=== PATIENT | female | born 1950 | race Caucasian/White ===

== ENCOUNTER 2016-07-06 00:52 | Inpatient (IN) | payer OTHER, MEDICARE ==
[~2016-07-06] VITALS: Ht 165.1 cm; Wt 79.4 kg
[~2016-07-06 00:52] MED LIST: LISINOPRIL20 M1 PO; METFORMIN HCL500 M3 PO; PRAVASTATIN SOD20 M2 PO; SERTRALINE HCL50 MG PO
--- NOTE | 2016-07-06 12:14 | Operative Report ---
Operative/Inv Procedure Report Surgery Date: 07/06/16 Name of Procedure: Right mastectomy and sentinel lymph node biopsy and left mastectomy Pre-Operative Diagnosis: Newly diagnosed right breast cancer, stage I History of left breast cancer Post-Operative Diagnosis: Same Estimated Blood Loss: less than 50ml Surgeon/Cloth Examiner Hand: RIAN WALKER MD Anesthesia: laryngeal mask airway Specimens: Left breast, right breast, medial breast tissue, right sentinel lymph node Operative/Procedure Note Note: Patient is history of left breast cancer in 2014. She presented with her newly diagnosed right-sided breast cancer. She decided on bilateral mastectomies for treatment. She brought to the operating room on 07/06/2016 and placed under anesthesia. 2 g of Ancef was given. Preoperative lymphoscintigraphy was performed and those films were reviewed. Bilateral breast were prepped and draped in a sterile fashion using ChloraPrep. 3 mL of methylene blue diluted with 2 mL of saline was injected in the retroareolar fashion. The left breast was approached first. The nipple areolar complex was excised Essman. Curvilinear incisions were made above and below the nipple areolar complex. Skin flaps are created superiorly to the level of clavicle, medially to the sternum, inferiorly to the superior border the rectus sheath and laterally to the latissimus. The breast tissue was then removed from the pectoralis fashion using electrocautery. Specimen was marked for orientation with a suture in the medial aspect. Hemostasis was adequate. The right breast was then approached. Similar incisions were made above and below the nipple areolar complex. Skin flaps are created in a similar fashion. Additional medial tissue was taken because the flap was thick in the medial aspect. The axilla was then approached. There was a single hot, blue lymph node identified. There were no other hot, blue, or palpable lymph nodes in the axilla. This was adequate remainder the procedures performed by Dr. Tang.
--- NOTE | 2016-07-06 13:18 | Operative Report ---
Operative/Inv Procedure Report Surgery Date: 07/06/16 Name of Procedure: Lateral breast reconstruction with tissue expanders and Flex HD the Pre-Operative Diagnosis: Absent bilateral breasts Post-Operative Diagnosis: Same Estimated Blood Loss: 50ml to 100ml Surgeon/Hi Lift Operator: debbie Anesthesia: general endotracheal tube Operative/Procedure Note Note: Patient was counseled in regards the procedure the alternatives risks and expected outcomes as relates to bilateral breast reconstruction with the tissue business lawyer Flex HD technique. We discussed all treatment options possible including on the patient has chosen this wound. We talked about risks with her history of radiation and size. She agreed to proceed knowing the reduced chances of an acceptable cosmetic outcome. She underwent left-sided mastectomy by Dr. Cerrato. A 0.2 separate table of insurance and assistance with fresh gloves and gowns was used. A antibiotic solution with bacitracin was used liberally throughout the case as well as in the tissue business lawyer The skin was reprepped with Betadine. The pectoralis muscle was removed inferiorly and inferior medially. 35 mL business lawyer was placed in the pocket and covered with an inferior sling of Flex HD with 2-0 Vicryl's. Was placed both above and below with 3 layer closure was carried out. Similar procedure done on the other side after further excision of some questionable quality tissue laterally.
[2016-07-06 14:57] VITALS: BP 126/76
--- NOTE | 2016-07-06 15:00 | NUR ---
ARRIVED TO FLOOR VIA STRETCHER FROM PACU. A & O X 3. RA. VSS. C/O MILD TIGHTNESS TO CHEST BUT DENIES SIGNIFICANT PAIN, STATES IT IS TOLERABLE. SURGICAL BRA IN PLACE. DRY DSG CLEAN AND INTACT UNDER BRA. ZARINA DRAIN X 4. ORIENTED TO CALL SYSTEM. IVF INFUSING. WILL MONITOR.
--- NOTE | 2016-07-06 15:21 | Admission Core Measures ---
Admission Meds I reviewed the following Meds: Current Medications Sig/Vanna Start time Last Medication Dose Stop Time Status Admin Acetaminophen 650 MG Q6P PRN 07/06 1500 UNVr (Tylenol) Cefazolin Sodium 2 GM IQ8 07/06 1600 UNVr (Kefzol) N/A 1 UNIT (No Carrier) Heparin Sodium 5,000 UNIT Q8 07/06 2200 UNVr (Porcine) Ibuprofen 600 MG 4 TIMES/DAY PRN 07/06 1000 UNVr (Motrin) Insulin Human Regular 0 TIDAC/HS 07/06 1200 CAN (NovoLIN R) Insulin Human Regular 0 TIDAC/HS 07/06 1200 UNVr (NovoLIN R) Ondansetron HCl 4 MG Q6P PRN 07/06 1500 UNVr (Zofran) Oxycodone/ 1 TAB Q4P PRN 07/06 1500 UNVr Acetaminophen (Percocet) Oxycodone/ 2 TAB Q4P PRN 07/06 1500 UNVr Acetaminophen (Percocet) Promethazine HCl 12.5 MG Q6P PRN 07/06 1500 UNVr (Phenergen) 07/13 0959 Sodium Chloride 1,000 ML Q13H 07/06 1500 UNVr 07/06 (Normal Saline 0.9%) 1511 Acute Coronary Syndrome Inclusion Criteria ACS Diagnosis No Inpatient Core Measures LDL Reminder: If No, please order W/I first 24hr of stay Congestive Heart Failure Inclusion Criteria CHF Diagnosis No Cerebrovascular accident Inclusion Criteria CVA/TIA Diagnosis No Inpatient Core Measures Bedside Swallow Eval Reminder: If BSE failed, place ST order Antithrombotic Reminder: Order Antithrombotic Medication by end of day 2 Antithrombotic Reminder: Document Reason Antithrombotic Not ordered by end of day 2 AFIB/Flutter Reminder: If Present, add to problem list AFIB/Flutter Reminder: Order Anticoag Medication for pts with AFIB/Flutter Atherosclerosis Reminder: If Present, add to problem list LDL Reminder: If No, please order W/I first 24hr of stay PT Order Reminder: If No, please order Venous thromboembolism Inpatient Core Measures VTE Risk Factors: Age > 40, Cancer/chemo/oth therapy, Surgery No Mech VTE prophylaxis d/t No contraindications No VTE Pharm Prophylaxis d/t No contraindications Inclusion Criteria - Per Current guidelines, there needs to be overlap - treatment for the first 5 days of Warfarin therapy. - Parenteral Anticoagulation (IV or SC) needs to be - given along with Warfarin therapy. VTE Diagnosis No VTE Type NONE VTE Confirmed by (Test) NONE Problem List As ranked by this Provider includes Assessment & Plan 1. Status post bilateral mastectomy HOME MEDS Home Med List Lisinopril 20 MG TABLET 1 TAB PO DAILY htn (Reported) Metformin HCl 500 MG TABLET 1 TAB PO BID dm ii (Reported) Pravastatin Sodium 20 MG TABLET 1 TAB PO DAILY cholesterol (Reported) Sertraline HCl 50 MG TABLET 1 TAB PO DAILY depression (Reported)
[2016-07-06] MEDS ORDERED: VALIUM2 M1 PO (15:24)
[2016-07-06] MEDS ORDERED: PERCOCET 5-3251 EACH PO (15:24)
--- NOTE | 2016-07-06 15:28 | Patient Discharge Instructions ---
Discharge Instructions General Discharge Information You were seen/treated for: Right breast cancer You had these procedures: Bilateral mastectomy with right sentinel lymph node biopsy and bilateral reconstruction with tissue expanders Watch for these problems: Initially increased pain, swelling, redness or drainage from incision. Temperature over 101 Change in color or significantly increased volume of drainage from drains No bath, but you may shower: Yes Other wound care: In 24 hours remove all dressings leaving white strips on until seen by her surgeon Replace dressings around drain daily with a dry dressing Special Instructions: Empty drains daily and as needed. Record output daily Diet Continue normal diet: Yes Activity Activity Self Limited: Yes Pounds, do NOT lift more than: 5 Other activity limits: No lifting more than 5 pounds No strenuous exercise and do not raise arms above chest level No driving until seen by your surgeon and off all pain medications Acute Coronary Syndrome Inclusion Criteria At DC or during hospital stay patient has or had the following: ACS DIAGNOSIS No Discharge Core Measures Meds if any: Prescribed or Continued at Discharge Meds if any: NOT Prescribed or Continued at Discharge Congestive Heart Failure Inclusion Criteria At DC or during hospital stay patient has or had the following: CHF DIAGNOSIS No Discharge Core Measures Meds if any: Prescribed or Continued at Discharge Meds if any: NOT Prescribed or Continued at Discharge Cerebrovascular accident Inclusion Criteria At DC or during hospital stay patient has or had the following: CVA/TIA Diagnosis No Discharge Core Measures Meds if any: Prescribed or Continued at Discharge Meds if any: NOT Prescribed or Continued at Discharge Venous thromboembolism Inclusion Criteria VTE Diagnosis No VTE Type NONE VTE Confirmed by (Test) NONE Discharge Core Measures - Per Current guidelines, there needs to be overlap - treatment for the first 5 days of Warfarin therapy. - If discharged on Warfarin prior to 5 days of - overlap therapy, the patient will need to be - assessed for post discharge needs including - *Post discharge parental anticoagulation - *Warfarin and/or parental anticoagulation education - *Follow up date to check INR post discharge At least 5 days overlap therapy as Inpatient No Meds if any: Prescribed or Continued at Discharge Note: Overlap Therapy is Warfarin and Anticoagulant Meds if any: NOT Prescribed or Continued at Discharge
--- NOTE | 2016-07-06 15:55 | PN- General Surgery ---
Subjective Subjective: Postop check: Patient is comfortable, mild nausea, tolerating clears, no significant pain, has not voided yet, no chest pain or shortness of breath, no fever or flulike illness. Objective Vital Signs and I&Os Vital Signs Date Time Temp Pulse Resp B/P B/P Pulse O2 O2 Flow FiO2 Mean Ox Delivery Rate 07/06 1457 97.3 65 16 126/76 93 Room Air Intake & Output 07/06 1600 07/06 0800 07/06 0000 07/05 1600 07/05 0800 07/05 0000 Intake Total Output Total Balance Patient 175 lb Weight Physical Exam: Well-developed well-nourished no apparent distress. HEENT: Atraumatic, extraocular motion intact Neck: Supple, no lymphadenopathy Respiratory: No respiratory distress Chest: Dressing is in place, clean dry and intact, [address], 2 on the left and 2 on the right with serous sanguinous discharge Extremities: No edema, no calf pain Neuro: Alert and oriented x3 Psych: Mood affect normal, normal memory normal judgment. Skin: Warm and dry, no rash on exposed skin Assessment/Plan Assessment/Plan Postop day 0 status post bilateral breast mastectomy with reconstruction and tissue deportation examiner and right-sided sentinel node biopsy secondary to breast cancer. Regular diet ZARINA drains to self suction-to be removed in 1 week as outpatient Continue bra and dressings Antibiotics for 5 days total, currently on Ancef IV every 8 hours, switch to Keflex upon DC DVT prophylaxis has history of PE and DVT, start heparin subcutaneous tonight every [address] in [address], discussed with patient, encourage ambulation Fingersticks and sliding scale coverage Continue regular medication Pain medication as needed Out of bed ad una. DC IV fluids been tolerating by mouth well Awaiting void after Hay catheter was removed postoperatively Labs tomorrow morning Anticipate discharge in 1-2 days Core Measures/Miscellaneous Venous Thromboembolism VTE Risk Factors: Age > 40, Previous VTE, Surgery VTE Contraindications: No Contraindications VTE Diagnosis: No VTE Type: NONE VTE Confirmed by (Test): NONE Beta Jeanmarie Is Beta Jeanmarie a Home Med? No Antibiotics Is Patient on Antibiotics? Yes If Yes: prophylaxis
[2016-07-06 16:56] VITALS: BP 110/60
[2016-07-06 19:26] VITALS: BP 140/80
[2016-07-06 22:16] VITALS: BP 122/66
--- NOTE | 2016-07-06 22:56 | NUR ---
ZARINA #4 NO OUTPUT, NOTIFIED KEVAN RONQUILLO.
[2016-07-06 23:59] VITALS: BP 132/74
[2016-07-07 03:58] VITALS: BP 124/70
--- NOTE | 2016-07-07 07:41 | PN- General Surgery ---
Subjective Subjective: No complaints. pain improves with vicodin. No more nausea. Out of bed to bathroom. No dizziness. No shortness of breath. Voiding well. She feels capable of doing her own drain care at home. Objective Vital Signs and I&Os Vital Signs Date Time Temp Pulse Resp B/P B/P Pulse O2 O2 Flow FiO2 Mean Ox Delivery Rate 07/07 0358 98.0 75 18 124/70 96 Room Air 07/07 0000 93 Nasal 2.0L Cannula 07/06 2358 99.5 73 20 132/74 95 Room Air 07/06 2216 99.0 68 20 122/66 93 07/06 1926 68 140/80 07/06 1656 98.1 71 20 110/60 92 07/06 1457 97.3 65 16 126/76 93 Room Air Intake & Output 07/07 0800 07/07 0000 07/06 1600 07/06 0807/06 0000 07/05 1600 Intake Total 720 1040 Output Total 461 920 Balance 259 120 Intake, IV 600 600 Intake, Oral 120 440 Output, 61 120 Drainage Output, Urine 400 800 Patient 175 lb 175 lb Weight Weight Reported by Patient Measurement Method Physical Exam: General - alert & oriented x 3. comfortable. no acute distress. Lungs - clear bilaterally. no w/r/r. Cardiac - s1s2. reg. Chest - wearing surgical bra. dressings c/d/i. ZARINA drains with bloody drainage. Abdomen - soft. nontender. Extremities - warm bilaterally. no c/c/e. calves soft and nontender b/l. athrombics active. Current Medications: Current Medications Sig/Vanna Start time Last Medication Dose Route Stop Time Status Admin Acetaminophen 650 MG Q6P PRN 07/06 1500 AC PO Acetaminophen 1,000 MG .STK-MED ONE 07/06 899 DC IV 07/06 09 Acetaminophen/ 1 TAB Q4P PRN 07/06 193 AC Hydrocodone Bitart PO Acetaminophen/ 2 TAB Q4P PRN 07/06 193 AC 07/07 Hydrocodone Bitart PO 0353 Cefazolin Sodium 2 GM IQ8 07/06 1600 AC 07/06 N/A 1 UNIT IV 2311 Cefazolin Sodium 2,000 MG ONCE 07/06 0000 DC IV 07/06 235 Fentanyl Citrate 250 MCG .STK-MED ONE 07/06 09 DC IM 07/06 0901 Heparin Sodium 5,000 UNIT Q8 07/06 2200 AC 07/07 (Porcine) SC 0554 Hydromorphone HCl 2 MG .STK-MED ONE 07/06 1319 DC IM 07/06 1320 Hydromorphone HCl 2 MG .STK-MED ONE 07/06 0900 DC IM 07/06 0901 Ibuprofen 600 MG 4 TIMES/DAY PRN 07/06 1000 AC PO Insulin Human Regular 0 TIDAC/HS 07/06 1200 CAN SC Insulin Human Regular 0 TIDAC/HS 07/06 1200 AC 07/06 SC 2133 Lisinopril 20 MG DAILY 07/06 1000 DC PO Metformin HCl 500 MG BID 07/06 1000 DC PO Midazolam HCl 5 MG .STK-MED ONE 07/06 0900 DC IM 07/06 0901 Ondansetron HCl 4 MG Q6P PRN 07/06 1500 AC 07/06 IV 1930 Oxycodone/ 1 TAB Q4P PRN 07/06 1500 DC Acetaminophen PO Oxycodone/ 2 TAB Q4P PRN 07/06 1500 DC Acetaminophen PO Pravastatin Sodium 20 MG DAILY 07/06 1000 DC PO Promethazine HCl 12.5 MG Q6P PRN 07/06 1500 AC IV 07/13 0959 Sertraline HCl 50 MG DAILY 07/06 1000 DC PO Sodium Chloride 1,000 ML Q13H 07/06 1500 AC 07/07 IV 0304 Results Last 48 Hours of Labs: Laboratory Tests 07/07 06 Chemistry Sodium Pending Potassium Pending Chloride Pending Carbon Dioxide Pending Anion Gap Pending BUN Pending Creatinine Pending BUN/Creatinine Ratio Pending Hematology CBC w Diff Pending WBC Pending RBC Pending Hgb Pending Hct Pending MCV Pending MCH Pending RDW Pending Plt Count Pending MPV Pending PUBS MCHC Pending Assessment/Plan Assessment/Plan This 66 year old female is POD#1 s/p bilateral breast mastectomy with reconstruction and tissue rn transfer and right-sided sentinel node biopsy secondary to breast cancer tolerating diet. d/c iv fluids. continue vicodin / valium / motrin prn pain control ZARINA drain teaching f/u labs hep sc - dvt ppx oob/ambulation continue IV ancef q8. to go home with keflex to complete 5 days d/c planning. she doesn't feel like she will need any services. will d/w Core Measures/Miscellaneous Venous Thromboembolism VTE Risk Factors: Age > 40, Previous VTE, Surgery VTE Contraindications: No Contraindications VTE Diagnosis: No VTE Type: NONE VTE Confirmed by (Test): NONE Beta Jeanmarie Is Beta Jeanmarie a Home Med? No Antibiotics Is Patient on Antibiotics? Yes If Yes: prophylaxis
[2016-07-07] MEDS ORDERED: KEFLEX500 M1 PO ×2 (07:43→07:50)
[2016-07-07 08:20] LABS: ABSOLUTE BASOPHIL COUNT 0 /CUMM (0.0-0.2); ABSOLUTE EOSINOPHIL COUNT 0 /CUMM (0.0-0.7); ABSOLUTE GRANULOCYTE CT 10.2 /CUMM (1.4-6.5); ABSOLUTE LYMPH COUNT 0.9 /CUMM (1.2-3.4); ABSOLUTE MONOCYTE COUNT 0.9 /CUMM (0.10-0.60); BASOPHIL % 0.1 % (0.0-2.0); EOSINOPHIL % 0 % (0-5); GRANULOCYTE % 85.2 % (42.2-75.2); HEMATOCRIT 33.2 % (37-47); MEAN CORPUSCULAR HGB 28.1 PG (27.0-31.0); MEAN CORPUSCULAR HGB CONC 32.8 G/DL (33.0-37.0); MEAN CORPUSCULAR VOLUME 85.6 FL (81.0-99.0); MEAN PLATELET VOLUME 8.6 FL (7.4-10.4); PLATELET COUNT 186 /CUMM (130-400); RBC DISTRIBUTION WIDTH 14.4 % (11.5-14.5); RED BLOOD CELL CT 3.88 /CUMM (4.20-5.40)
[2016-07-07 09:31] VITALS: BP 128/72
[2016-07-07] MEDS ORDERED: NORCO 5-325 TA1 EACH PO (10:04)
--- NOTE | 2016-07-08 11:27 | Surgical Discharge Summary ---
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 Home Who Do You Live With? Spouse Services at Home: None What is Your Primary Language? Guatemalan Review of Systems: Negative Hospital Course Course Attending Physician: RIAN WALKER MD Primary Care Physician: LG DEY MD Hospital Course: Patient was admitted on 07/06/2016 for bilateral mastectomies and right sentinel lymph node biopsy. The procedure interval postoperatively. She had expected postoperative course. By the morning of postoperative day 1 she was tolerating a regular diet and pain was well-controlled. Discharge home with her ZARINA drains. Allergies: Coded Allergies: NO KNOWN ALLERGIES (12/08/15) Disposition Summary Disposition Principal Diagnosis: Right breast cancer Additional Diagnosis: None Discharge Disposition: home or self care Discharge Instructions General Discharge Information Code Status: Full Code Patient's Diet: As tolerated Patient's Activity: As tolerated with no arm extension about 90 Follow-Up Instructions/Appts: Follow-up with Dr. Tang and Dr. Walker in 1 week Medications at Discharge Discharge Medications: Continue taking these medications: Lisinopril (Lisinopril) 20 MG TABLET 1 Tablet ORAL DAILY Comments: NOT GIVEN IN HOSPITAL Metformin HCl (Metformin HCl) 500 MG TABLET 1 Tablet ORAL TWICE DAILY Comments: NOT GIVEN IN HOSPITAL Sertraline HCl (Sertraline HCl) 50 MG TABLET 1 Tablet ORAL DAILY Comments: NOT GIVEN IN HOSPITAL Pravastatin Sodium (Pravastatin Sodium) 20 MG TABLET 1 Tablet ORAL DAILY Comments: NOT GIVEN IN HOSPITAL Start taking the following new medications: Cephalexin (Keflex) 500 MG CAPSULE 1 Capsule ORAL THREE TIMES DAILY Qty = 15 No Refills Comments: NOT GIVEN IN HOSPITAL Diazepam (Valium) 2 MG TABLET 1 Tablet ORAL EVERY 8 HOURS NEEDED as needed for SPASMS Qty = 20 No Refills Comments: NOT GIVEN IN HOSPITAL Hydrocodone/Acetaminophen (Crouse 5-325 Tablet) 5 MG-325 MG TABLET 1-2 Tablet ORAL EVERY 4-6 HOURS NEEDED as needed for PAIN Qty = 30 No Refills Comments: Last Taken:07/07/16 Time: 8AM
== END 2016-07-07 13:00 | DRG 581 ==
LOC: SDA 00:52 → 2NA 00:52 → SDA 07:00 → EDBEDREQ 12:43 → ENRESERV 12:57 → 2NA 14:40 → ENPENDDIS 07-07 10:09 → 2NA 07-07 13:00
PROVIDERS: Physician Assistant Surgical; ADMIT Surgery
PROC: 07B50ZX Excision of Right Axillary Lymphatic, Open Approach, Diagnostic (ICD-10-PCS; principal; 2016-07-06)
PROC: 0HTV0ZZ Resection of Bilateral Breast, Open Approach (ICD-10-PCS; principal; 2016-07-06)
PROC: 0KBH0ZZ Excision of Right Thorax Muscle, Open Approach (ICD-10-PCS; 2016-07-06)
PROC: 0KBJ0ZZ Excision of Left Thorax Muscle, Open Approach (ICD-10-PCS; 2016-07-06)
PROC: 0HHV0NZ Insertion of Tissue Expander into Bilateral Breast, Open Approach (ICD-10-PCS; 2016-07-06)
DX: C50.911 Malignant neoplasm of unspecified site of right female breast (principal); I10 Essential (primary) hypertension; E11.9 Type 2 diabetes mellitus without complications; F32.9 Major depressive disorder, single episode, unspecified; F41.9 Anxiety disorder, unspecified; Z86.711 Personal history of pulmonary embolism; E78.5 Hyperlipidemia, unspecified; Z85.3 Personal history of malignant neoplasm of breast; Z79.84 Long term (current) use of oral hypoglycemic drugs
CPT/HCPCS: 2NAP; 82436; 88305; 88307; A9520; J0131; J0690; J1580; J1644; J1815; J2405; J2550; Q4128

== ENCOUNTER 2016-07-29 11:52 | Inpatient (IN) | payer OTHER, MEDICARE ==
[~2016-07-29] VITALS: Ht 165.1 cm; Wt 78.9 kg
[~2016-07-29 11:52] MED LIST changes: +KEFLEX500 M1 PO; +NORCO 5-325 TA1 EACH PO; +PERCOCET 5-3251 EACH PO; +VALIUM2 M1 PO
--- NOTE | 2016-07-29 12:06 | NUR ---
66 Y/[address] FEMALE SENT BY DR WALKER OFFICE FOR EVAL OF REDNESS AND SWELLING TO SITE OF BILATERAL MASECTOMY. PER MD, PT HAD BILATERAL MASECTOMIES WITH TISSUE TOOTH CUTTER SPUR PLACEMENT; BEGAN TO HAVE FEVERS AND REDNESS TO SITE TUESDAY WHICH HAS PROGRESSIVELY GOTTEN WORSE. PT REPORTS PAIN UNDER L ARM AND BREAST. PER MD, PT REQUIRING IV ANITBIOTICS, LIKELY ADMISSION, AND DR MORENO WILL EVAL PT BUT IS IN OR AT THIS TIME. PLEASE CALL DR WALKER OFFICE WITH ANY QUESTIONS [phone]
--- NOTE | 2016-07-29 12:06 | NUR ---
NURSE FROM OR CALLED STATING TO PLEASE KEEP PT NPO AT THIS TIME IN CASE SHE REQUIRES SURGICAL INTERVENTION. CONFIRMS DR MORENO IS SCRUBBED IN BUT WILL COME TO ED TO EVAL PT.
--- NOTE | 2016-07-29 12:15 | ED GENERAL ADULT ---
History of Present Illness General Chief Complaint: General Adult Stated Complaint: S/P BILATERAL MASECTOMY ? INFECTION Source: patient, family, old records Exam Limitations: no limitations Vital Signs & Intake/Output Vital Signs & Intake/Output Vital Signs Date Time Temp Pulse Resp B/P B/P Pulse O2 O2 Flow FiO2 Mean Ox Delivery Rate 07/29 1751 102.7 07/29 1732 102.7 97 18 120/58 97 Room Air 07/29 1640 97 Room Air 07/29 1517 99.9 97 20 136/61 96 Room Air 07/29 1201 99.3 97 18 128/67 99 Room Air Allergies Coded Allergies: NO KNOWN ALLERGIES (12/08/15) Reconcile Medications Calcium Carbonate/Vitamin D3 (Caltrate 600 + D Tablet) 600 MG-800 TABLET 1 TAB PO DAILY SUPPLEMENT (Reported) Glucosam/Chond/Hyalu/Cf Borate (Move Free Joint Health Tablet) 750 MG-100 MG- 1.65 MG-108 MG TABLET 1 CAP PO DAILY SUPPLEMENT (Reported) Lisinopril 20 MG TABLET 1 TAB PO DAILY htn (Reported) Metformin HCl 500 MG TABLET 1 TAB PO BID dm ii (Reported) Multivit-Min/FA/Lycopen/Lutein (Centrum Silver Tablet) 0.4 MG-300 MCG-250 MCG TABLET 1 TAB PO DAILY VITAMIN SUPPORT (Reported) Pravastatin Sodium 20 MG TABLET 1 TAB PO DAILY cholesterol (Reported) Psyllium Husk (Metamucil) 0.4 GRAM CAPSULE 4 CAP PO DAILY GI (Reported) Sertraline HCl 50 MG TABLET 1 TAB PO DAILY depression (Reported) Turmeric Root Extract (Turmeric) (Unknown Strength) CAPSULE (Unknown Dose) PO DAILY SUPPLEMENT (Reported) Ubidecarenone (Co Q-10) 100 MG CAPSULE 1 CAP PO DAILY SUPPLEMENT (Reported) Triage Note: 66 Y/[address]ENT [address] DR WALKER OFFICE FOR EVAL OF REDNESS AND SWELLING TO SITE OF BILATERAL MASECTOMY. PER MD, PT HAD BILATERAL MASECTOMIES WITH TISSUE MORTGAGE LENDER PLACEMENT; BEGAN TO HAVE FEVERS AND REDNESS TO SITE TUESDAY WHICH HAS PROGRESSIVELY GOTTEN WORSE. PT REPORTS PAIN UNDER L ARM AND BREAST. PER , PT REQUIRING IV ANITBIOTICS, LIKELY ADMISSION, AND DR MORENO WILL EVAL PT BUT IS IN OR AT THIS TIME. PLEASE CALL DR WALKER OFFICE WITH ANY QUESTIONS [phone] Triage Nurses Notes Reviewed? yes HPI: Patient had a bilateral mastectomy for breast cancer as well as implants. Her drains removed on Tuesday. On Tuesday she began to spike fevers up to 102. She has been having shaking chills and increasing redness to the area of her left breast surgery. The redness is spreading around her armpit and her armpit is becoming swollen. She is having 6 out of 10 pain to the area. Positive fevers and chills. There are no aggravating or mitigating factors to the pain. It radiates as above. The pain is aching in nature. Patient was seen by her surgeon and was instructed to come to the emergency department for evaluation. Past History Travel History Traveled to [facility] past 21 day No Medical History Any Pertinent Medical History? 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 No Review of Systems Review of Systems Constitutional: Reports: see HPI, chills, fever. EENTM: Reports: no symptoms. Respiratory: Reports: no symptoms. Cardiovascular: Reports: no symptoms. GI: Reports: no symptoms. Genitourinary: Reports: no symptoms. Musculoskeletal: Reports: no symptoms. Skin: Reports: see HPI. Neurological/Psychological: Reports: no symptoms. Hematologic/Endocrine: Reports: no symptoms. Immunologic/Allergic: Reports: no symptoms. All Other Systems: Reviewed and Negative Physical Exam Physical Exam General Appearance: well developed/nourished, alert, awake, anxious, moderate distress Head: atraumatic, normal appearance Eyes: Bilateral: PERRL, EOMI. Ears, Nose, Throat: normal pharynx, normal ENT inspection, hearing grossly normal Neck: normal inspection, supple, full range of motion Respiratory: normal breath sounds, chest non-tender, no respiratory distress, lungs clear Cardiovascular: regular rate/rhythm, normal peripheral pulses Gastrointestinal: normal bowel sounds, soft, non-tender, no organomegaly Back: normal inspection, normal range of motion Extremities: normal inspection, normal capillary refill, SWELLING AND TENDERNESS TO LEFT AXILLA Neurologic/Psych: no motor/sensory deficits, awake, alert, oriented x 3, normal gait, normal mood/affect Skin: ERYTHEMA BAND LIKE FROM LEFT MESECTOMY SITE TO LEFT AXILLA, WARM TO TOUCH, TENDER Core Measures ACS in differential dx? No CVA/TIA Diagnosis: No Severe Sepsis Present: No Septic Shock Present: No Progress Differential Diagnoses I considered the following diagnoses in my evaluation of the patient: [POST OP CELLULITITS] Plan of Care: Orders Procedure Date/time Status BLOOD CULTURE 07/29 121 Active COMPREHENSIVE METABOLIC PANEL 07/29 121 Complete CBC WITHOUT DIFFERENTIAL 07/30 1215 Complete Laboratory Tests 07/29/16 1405: Anion Gap 10, Estimated GFR > 60, BUN/Creatinine Ratio 15.0, Glucose 112 H, Calcium 9.1, Total Bilirubin 0.6, AST 17, ALT 40, Alkaline Phosphatase 102, Total Protein 6.2 L, Albumin 3.3 L, Globulin 2.9, Albumin/Globulin Ratio 1.1, CBC w Diff MAN DIFF ORDERED, RBC 4.20, MCV 85.0, MCH 27.6, RDW 13.8, MPV 8.0, Gran % 88.0 H, Lymphocytes % 6.2 L, Monocytes % 5.3, Eosinophils % 0.3, Basophils % 0.2, Absolute Granulocytes 13.4 H, Segmented Neutrophils 85 H, Band Neutrophils 5, Absolute Lymphocytes 0.9 L, Lymphocytes 6 L, Monocytes 3, Absolute Monocytes 0.8 H, Absolute Eosinophils 0, Basophils 1, Absolute Basophils 0, Platelet Estimate VERIFIED BY SMEAR, Normocytic RBCs VERIFIED, Normochromic RBCs VERIFIED, PUBS MCHC 32.5 L Microbiology 07/29 1420 BLOOD: Blood Culture - RECD 07/29 1405 BLOOD: Blood Culture - RECD Initial ED EKG: none Comments: Discussed with Dr. Winston. He will follow patient for medicine. Departure Departure Disposition: STILL A PATIENT Condition: Guarded Clinical Impression Primary Impression: Cellulitis Referrals: YISSEL NICOLAS,LG Bob (PCP/Family) Departure Forms: Customer Survey General Discharge Information Admission Note Spoke With: LOUIS MORENO MD Documentation of Exam: Documentation of any treatments & extenuating circumstances including Concerns Regarding Discharge (functional status, medication knowledge or non-compliance, living conditions, etc.) that warrant an admission rather than observation: [IV antibiotics, if she the cellulitis improves and then will be able to be changed over to oral antibiotics oh if her if the infection worsens she may require going back to the OR for removal of the implant.] Critical Care Note Critical Care Note Critical Care Time: non-applicable
[2016-07-29] MEDS ORDERED: CALTRATE 600 +1 EACH PO (12:55)
[2016-07-29] MEDS ORDERED: TURMERIC500 M1 PO (12:55)
[2016-07-29] MEDS ORDERED: MOVE FREE JOIN1 EACH PO (12:56)
[2016-07-29] MEDS ORDERED: METAMUCIL0.4 GM PO (12:56)
[2016-07-29] MEDS ORDERED: CO Q-10100 MG PO (12:57)
[2016-07-29] MEDS ORDERED: CENTRUM SILVER1 EAC3 PO (12:57)
--- NOTE | 2016-07-29 13:10 | NUR ---
TRIAGE NOTE ACKNOWLEDGED AND RN CARE ASSUMED. PT EVALUATED BY DR ORNELAS
--- NOTE | 2016-07-29 13:26 | NUR ---
PT EVALUATED BY DR MORENO
[2016-07-29 14:27] LABS: ABSOLUTE BASOPHIL COUNT 0 /CUMM (0.0-0.2); ABSOLUTE EOSINOPHIL COUNT 0 /CUMM (0.0-0.7); ABSOLUTE GRANULOCYTE CT 13.4 /CUMM (1.4-6.5); ABSOLUTE LYMPH COUNT 0.9 /CUMM (1.2-3.4); ABSOLUTE MONOCYTE COUNT 0.8 /CUMM (0.10-0.60); BASOPHIL % 0.2 % (0.0-2.0); EOSINOPHIL % 0.3 % (0-5); HEMATOCRIT 35.7 % (37-47); MEAN CORPUSCULAR HGB 27.6 PG (27.0-31.0); MEAN CORPUSCULAR HGB CONC 32.5 G/DL (33.0-37.0); PLATELET COUNT 272 /CUMM (130-400); RBC DISTRIBUTION WIDTH 13.8 % (11.5-14.5); WHITE BLOOD CELL COUNT 15.2 /CUMM (4.8-10.8)
--- NOTE | 2016-07-29 14:37 | NUR ---
BLOOD DRAWN DIRECTED WITH 2 SETS OF BLOOD CULTURES 20 G ELIANE PLACED IN LW PT MEDICATED WITH ILM N/S W/O, 4 MG MORPHINE IV FOR PAIN AND 3 G UNASYN IVSS
--- NOTE | 2016-07-29 15:35 | NUR ---
BLOOD DRAWN DIRECTED. 20 G ELIANE PLACED IN LEFT WRIST PT MEDICATED DIRECTED, SEE MAR ALL V.S.S. CLINICAL STATUS UNCHANGED.
--- NOTE | 2016-07-29 17:23 | NUR ---
RE-ASSESSMENT PERFORMED, CLINICAL STATUS UNCHANGED.
--- NOTE | 2016-07-29 17:51 | NUR ---
PT MEDICATED DIRECTED FOR FEVER OF 102.7 DR ORNELAS IN TO RE-EVALUATE PT
--- NOTE | 2016-07-29 18:35 | Admission Core Measures ---
Admission Lab Results I reviewed the following labs: Laboratory Tests 07/29 1405 Chemistry Sodium (137 - 145 mmol/L) 132 L Potassium (3.5 - 5.1 mmol/L) 4.3 Chloride (98 - 107 mmol/L) 97 L Carbon Dioxide (22 - 30 mmol/L) 25 Anion Gap (5 - 16) 10 BUN (7 - 17 mg/dL) 9 Creatinine (0.5 - 1.0 mg/dL) 0.6 Estimated GFR (>60 ml/min) > 60 BUN/Creatinine Ratio (7 - 25 %) 15.0 Glucose (65 - 99 mg/dL) 112 H Calcium (8.4 - 10.2 mg/dL) 9.1 Total Bilirubin (0.2 - 1.3 mg/dL) 0.6 AST (14 - 36 U/L) 17 ALT (9 - 52 U/L) 40 Alkaline Phosphatase (<127 U/L) 102 Total Protein (6.3 - 8.2 g/dL) 6.2 L Albumin (3.5 - 5.0 g/dL) 3.3 L Globulin (1.9 - 4.2 gm/dL) 2.9 Albumin/Globulin Ratio (1.1 - 2.2 %) 1.1 Hematology CBC w Diff MAN DIFF ORDERED WBC (4.8 - 10.8 /CUMM) 15.2 H RBC (4.20 - 5.40 /CUMM) 4.20 Hgb (12.0 - 16.0 G/DL) 11.6 L Hct (37 - 47 %) 35.7 L MCV (81.0 - 99.0 FL) 85.0 MCH (27.0 - 31.0 PG) 27.6 RDW (11.5 - 14.5 %) 13.8 Plt Count (130 - 400 /CUMM) 272 MPV (7.4 - 10.4 FL) 8.0 Gran % (42.2 - 75.2 %) 88.0 H Lymphocytes % (20.5 - 51.1 %) 6.2 L Monocytes % (1.7 - 9.3 %) 5.3 Eosinophils % (0 - 5 %) 0.3 Basophils % (0.0 - 2.0 %) 0.2 Absolute Granulocytes (1.4 - 6.5 /CUMM) 13.4 H Segmented Neutrophils (42.2 - 75.2 %) 85 H Band Neutrophils (0.0 - 5.0 %) 5 Absolute Lymphocytes (1.2 - 3.4 /CUMM) 0.9 L Lymphocytes (20.5 - 51.1 %) 6 L Monocytes (1.7 - 9.3 %) 3 Absolute Monocytes (0.10 - 0.60 /CUMM) 0.8 H Absolute Eosinophils (0.0 - 0.7 /CUMM) 0 Basophils (0.0 - 2.0 %) 1 Absolute Basophils (0.0 - 0.2 /CUMM) 0 Platelet Estimate (ADEQUATE) VERIFIED BY SMEAR Normocytic RBCs VERIFIED Normochromic RBCs VERIFIED PUBS MCHC (33.0 - 37.0 G/DL) 32.5 L Acute Coronary Syndrome Inclusion Criteria ACS Diagnosis No Inpatient Core Measures LDL Reminder: If No, please order W/I first 24hr of stay Congestive Heart Failure Inclusion Criteria CHF Diagnosis No Cerebrovascular accident Inclusion Criteria CVA/TIA Diagnosis No Inpatient Core Measures Bedside Swallow Eval Reminder: If BSE failed, place ST order Antithrombotic Reminder: Order Antithrombotic Medication by end of day 2 Antithrombotic Reminder: Document Reason Antithrombotic Not ordered by end of day 2 AFIB/Flutter Reminder: If Present, add to problem list AFIB/Flutter Reminder: Order Anticoag Medication for pts with AFIB/Flutter Atherosclerosis Reminder: If Present, add to problem list LDL Reminder: If No, please order W/I first 24hr of stay PT Order Reminder: If No, please order Venous thromboembolism Inpatient Core Measures VTE Risk Factors: Age > 40, Cancer/chemo/oth therapy [facility] prophylaxis d/t No contraindications No VTE Pharm Prophylaxis d/t No contraindications Inclusion Criteria - Per Current guidelines, there needs to be overlap - treatment for the first 5 days of Warfarin therapy. - Parenteral Anticoagulation (IV or SC) needs to be - given along with Warfarin therapy. VTE Diagnosis No VTE Type NONE VTE Confirmed by (Test) NONE Problem List As ranked by this Provider includes Assessment & Plan 1. Cellulitis of left breast HOME MEDS Home Med List Calcium Carbonate/Vitamin D3 (Caltrate 600 + D Tablet) 600 MG-800 TABLET 1 TAB PO DAILY SUPPLEMENT (Reported) Glucosam/Chond/Hyalu/Cf Borate (Move Free Joint Health Tablet) 750 MG-100 MG- 1.65 MG-108 MG TABLET 1 CAP PO DAILY SUPPLEMENT (Reported) Lisinopril 20 MG TABLET 1 TAB PO DAILY htn (Reported) Metformin HCl 500 MG TABLET 1 TAB PO BID dm ii (Reported) Multivit-Min/FA/Lycopen/Lutein (Centrum Silver Tablet) 0.4 MG-300 MCG-250 MCG TABLET 1 TAB PO DAILY VITAMIN SUPPORT (Reported) Pravastatin Sodium 20 MG TABLET 1 TAB PO DAILY cholesterol (Reported) Psyllium Husk (Metamucil) 0.4 GRAM CAPSULE 4 CAP PO DAILY GI (Reported) Sertraline HCl 50 MG TABLET 1 TAB PO DAILY depression (Reported) Turmeric Root Extract (Turmeric) (Unknown Strength) CAPSULE (Unknown Dose) PO DAILY SUPPLEMENT (Reported) Ubidecarenone (Co Q-10) 100 MG CAPSULE 1 CAP PO DAILY SUPPLEMENT (Reported)
--- NOTE | 2016-07-29 18:42 | Cons- Plastic Surgery ---
General Information and HPI Consulting Request Date of Consult: 07/29/16 Requested By: hazel Reason for Consult: Cellulitis left breast Source of Information: patient Exam Limitations: no limitations History of Present Illness: Patient is status post bilateral mastectomies with immediate bilateral reconstruction with the use of tissue expanders and Flex HD. Earlier this week in my office with no complaints where the drain was removed from the left side. She states she's had some fevers since then noticed new redness encompassing the left breast with reports of some fevers no nausea vomiting. She is brought for evaluation. Allergies/Medications Allergies: Coded Allergies: NO KNOWN ALLERGIES (12/08/15) Home Med List: Calcium Carbonate/Vitamin D3 (Caltrate 600 + D Tablet) 600 MG-800 TABLET 1 TAB PO DAILY SUPPLEMENT (Reported) Glucosam/Chond/Hyalu/Cf Borate (Move Free Joint Health Tablet) 750 MG-100 MG- 1.65 MG-108 MG TABLET 1 CAP PO DAILY SUPPLEMENT (Reported) Lisinopril 20 MG TABLET 1 TAB PO DAILY htn (Reported) Metformin HCl 500 MG TABLET 1 TAB PO BID dm ii (Reported) Multivit-Min/FA/Lycopen/Lutein (Centrum Silver Tablet) 0.4 MG-300 MCG-250 MCG TABLET 1 TAB PO DAILY VITAMIN SUPPORT (Reported) Pravastatin Sodium 20 MG TABLET 1 TAB PO DAILY cholesterol (Reported) Psyllium Husk (Metamucil) 0.4 GRAM CAPSULE 4 CAP PO DAILY GI (Reported) Sertraline HCl 50 MG TABLET 1 TAB PO DAILY depression (Reported) Turmeric Root Extract (Turmeric) (Unknown Strength) CAPSULE (Unknown Dose) PO DAILY SUPPLEMENT (Reported) Ubidecarenone (Co Q-10) 100 MG CAPSULE 1 CAP PO DAILY SUPPLEMENT (Reported) Past History Medical History Neurological: NONE EENT: NONE Cardiovascular: hypertension, hyperlipidemia Respiratory: NONE Gastrointestinal: diverticulitis Hepatic: NONE Renal: NONE Musculoskeletal: osteoarthritis Psychiatric: depression Endocrine: diabetes Blood Disorders: NONE 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 Surgical History Pertinent Surgical History: masectomy, COLON RESECTION, L ROTATOR CUFF, L LEFT LUMPECTOMY, APPY Psychosocial History Services at Home: None ETOH Use: occasional use Illicit Drug Use: denies illicit drug use Review of Systems Review of Systems: All other systems negative Exam & Diagnostic Data Vital Signs and I&O Vital Signs Date Time Temp Pulse Resp B/P B/P Pulse O2 O2 Flow FiO2 Mean Ox Delivery Rate 07/29 1751 102.7 07/29 1732 102.7 97 18 120/58 97 Room Air 07/29 1640 97 Room Air 07/29 1517 99.9 97 20 136/61 96 Room Air 07/29 1201 99.3 97 18 128/67 99 Room Air Intake & Output 07/29 1600 07/29 0800 07/29 0000 07/28 1600 07/28 0800 07/28 0000 Intake Total 1000 Output Total Balance 1000 Intake, IV 1000 Patient 174 lb Weight Weight Reported by Patient Measurement Method Physical Exam: Patient is in mild distress with tenderness over the left chest. There is a line of demarcation of erythema in the lower half of the breast extending over the width of the breast. There is no active drainage and no ischemia of the overlying skin. There is no fluctuance or evidence of a fluid collection. Last 24 Hours of Labs: Laboratory Tests 07/29 1405 Chemistry Sodium (137 - 145 mmol/L) 132 L Potassium (3.5 - 5.1 mmol/L) 4.3 Chloride (98 - 107 mmol/L) 97 L Carbon Dioxide (22 - 30 mmol/L) 25 Anion Gap (5 - 16) 10 BUN (7 - 17 mg/dL) 9 Creatinine (0.5 - 1.0 mg/dL) 0.6 Estimated GFR (>60 ml/min) > 60 BUN/Creatinine Ratio (7 - 25 %) 15.0 Glucose (65 - 99 mg/dL) 112 H Calcium (8.4 - 10.2 mg/dL) 9.1 Total Bilirubin (0.2 - 1.3 mg/dL) 0.6 AST (14 - 36 U/L) 17 ALT (9 - 52 U/L) 40 Alkaline Phosphatase (<127 U/L) 102 Total Protein (6.3 - 8.2 g/dL) 6.2 L Albumin (3.5 - 5.0 g/dL) 3.3 L Globulin (1.9 - 4.2 gm/dL) 2.9 Albumin/Globulin Ratio (1.1 - 2.2 %) 1.1 Hematology CBC w Diff MAN DIFF ORDERED WBC (4.8 - 10.8 /CUMM) 15.2 H RBC (4.20 - 5.40 /CUMM) 4.20 Hgb (12.0 - 16.0 G/DL) 11.6 L Hct (37 - 47 %) 35.7 L MCV (81.0 - 99.0 FL) 85.0 MCH (27.0 - 31.0 PG) 27.6 RDW (11.5 - 14.5 %) 13.8 Plt Count (130 - 400 /CUMM) 272 MPV (7.4 - 10.4 FL) 8.0 Gran % (42.2 - 75.2 %) 88.0 H Lymphocytes % (20.5 - 51.1 %) 6.2 L Monocytes % (1.7 - 9.3 %) 5.3 Eosinophils % (0 - 5 %) 0.3 Basophils % (0.0 - 2.0 %) 0.2 Absolute Granulocytes (1.4 - 6.5 /CUMM) 13.4 H Segmented Neutrophils (42.2 - 75.2 %) 85 H Band Neutrophils (0.0 - 5.0 %) 5 Absolute Lymphocytes (1.2 - 3.4 /CUMM) 0.9 L Lymphocytes (20.5 - 51.1 %) 6 L Monocytes (1.7 - 9.3 %) 3 Absolute Monocytes (0.10 - 0.60 /CUMM) 0.8 H Absolute Eosinophils (0.0 - 0.7 /CUMM) 0 Basophils (0.0 - 2.0 %) 1 Absolute Basophils (0.0 - 0.2 /CUMM) 0 Platelet Estimate (ADEQUATE) VERIFIED BY SMEAR Normocytic RBCs VERIFIED Normochromic RBCs VERIFIED PUBS MCHC (33.0 - 37.0 G/DL) 32.5 L Assessment/Plan Assessment/Plan Cellulitis left breast. The patient is currently not septic. This allows the opportunity to evaluate the response to intravenous antibiotics. If the patient should worsen explantation with placement of a new emergency medicine physician assistant or complete explantation are 2 options depending on her response over the next day or so. Repeat white blood cell count early tomorrow morning. npo after midnight tonight. Consult Acknowledgment - Thank you for your consult request.
--- NOTE | 2016-07-29 19:00 | NUR ---
BLOOD SUGAR 168
--- NOTE | 2016-07-29 19:28 | NUR ---
PT MEDICATED WITH INSULIN PER EMAR.
--- NOTE | 2016-07-29 19:37 | NUR ---
BED ASSIGNMENT 233-1
--- NOTE | 2016-07-29 19:44 | NUR ---
THIS RN CALLED 2N TO GIVE REPORT. RECEIVING NURSE WILL RETURN CALL.
--- NOTE | 2016-07-29 20:11 | NUR ---
THIS RN CONTINUES TO AWAIT CALL BACK FROM RECEIVING NURSE.
--- NOTE | 2016-07-29 20:34 | NUR ---
REPORT GIVEN TO AMY GARCIA ON 2NA. BED IS READY.
--- NOTE | 2016-07-29 20:47 | NUR ---
TRANSPORT HERE FOR PT
--- NOTE | 2016-07-29 21:00 | NUR ---
PT ARRIVED TO FLOOR. VSS AND AFEBRILE. AOX3 AND ON RA. AMBULATORY WITH STEADY GAIT. REDNESS TO L CHEST. NO C/O PAIN. 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
[2016-07-29 21:12] VITALS: BP 108/60
[2016-07-30 06:29] VITALS: BP 110/60
--- NOTE | 2016-07-30 08:19 | PN- Plastic Surgery ---
Subjective Subjective: Reports ongoing discomfort long her left chest. Nausea resolved. Currently npo. Blood draw unsuccessful earlier, so new team attempting currently. Objective Vital Signs and I&Os Vital Signs Date Time Temp Pulse Resp B/P B/P Pulse O2 O2 Flow FiO2 Mean Ox Delivery Rate 07/30 0629 99.2 79 20 110/60 95 Room Air 07/29 2112 98.7 82 20 108/60 95 Room Air 07/29 2038 99.0 84 18 118/59 95 Room Air 07/29 1937 100.0 07/29 1927 100.0 90 18 122/57 94 Room Air 07/29 1751 102.7 07/29 1732 102.7 97 18 120/58 97 Room Air 07/29 1640 97 Room Air 07/29 1517 99.9 97 20 136/61 96 Room Air 07/29 1201 99.3 97 18 128/67 99 Room Air Intake & Output 07/30 1600 07/30 0800 07/30 0000 07/29 1600 07/29 0800 07/29 0000 Intake Total 058 043 5076 Output Total Balance 508 832 0296 Intake, IV 832 00 5886 Intake, Oral 30 Patient 174 lb 174 lb Weight Weight Reported by Patient Measurement Method Physical Exam: General - alert & oriented x 3. comfortable. no acute distress. Lungs - clear. left chest wall erythematous, extending to the previously marked border Cardiac - s1s2. reg. Abdomen - soft. nontender. Extremities - warm bilaterally. no c/c/e. calves soft and nontender. Current Medications: Current Medications Sig/Vanna Start time Last Medication Dose Route Stop Time Status Admin Acetaminophen 650 MG Q6PRN PRN 07/29 1845 AC 07/29 PO 2334 Acetaminophen 0 .STK-MED ONE 07/29 1754 DC PO Acetaminophen 1,000 MG ONCE ONE 07/29 1745 DC 07/29 PO 07/29 1746 1751 Ampicillin Sodium/ 3,000 MG Q6 07/29 2359 AC 07/30 Sulbactam Sodium IV 0623 Sodium Chloride 100 ML Ampicillin Sodium/ 0 .STK-MED ONE 07/29 1425 DC Sulbactam Sodium .ROUTE Ampicillin Sodium/ 3,000 MG ONCE ONE 07/29 1230 DC 07/29 Sulbactam Sodium IV 07/29 1259 1431 Sodium Chloride 100 ML Dextrose/Sodium 1,000 ML .[id number] 07/29 2300 AC 07/29 Chloride IV 2248 Heparin Sodium 5,000 UNIT Q8 07/29 2200 AC 07/30 (Porcine) SC 0623 Insulin Human Regular 0 Q6 07/29 1844 AC 07/30 SC 0623 Lisinopril 20 MG DAILY 07/30 1000 AC PO Morphine Sulfate 2 MG Q3P PRN 07/29 1845 AC 07/30 IV 0623 Morphine Sulfate 0 .STK-MED ONE 07/29 1425 DC .ROUTE Morphine Sulfate 4 MG ONCE ONE 07/29 1230 DC 07/29 IV 07/29 1231 1432 Ondansetron HCl 4 MG Q6P PRN 07/29 1845 AC IV Oxycodone/ 1 TAB Q4P PRN 07/29 184 AC Acetaminophen PO Oxycodone/ 2 TAB Q4P PRN 07/29 184 AC Acetaminophen PO Pravastatin Sodium 20 MG 1700 07/30 1700 AC PO Sertraline HCl 50 MG DAILY 07/30 1000 AC PO Sodium Chloride 1,000 ML BOLUS ONE 07/29 1230 DC 07/29 IV 07/29 1329 1432 Results Last 48 Hours of Labs: Laboratory Tests 07/29 1405 Chemistry Sodium (137 - 145 mmol/L) 132 L Potassium (3.5 - 5.1 mmol/L) 4.3 Chloride (98 - 107 mmol/L) 97 L Carbon Dioxide (22 - 30 mmol/L) 25 Anion Gap (5 - 16) 10 BUN (7 - 17 mg/dL) 9 Creatinine (0.5 - 1.0 mg/dL) 0.6 Estimated GFR (>60 ml/min) > 60 BUN/Creatinine Ratio (7 - 25 %) 15.0 Glucose (65 - 99 mg/dL) 112 H Calcium (8.4 - 10.2 mg/dL) 9.1 Total Bilirubin (0.2 - 1.3 mg/dL) 0.6 AST (14 - 36 U/L) 17 ALT (9 - 52 U/L) 40 Alkaline Phosphatase (<127 U/L) 102 Total Protein (6.3 - 8.2 g/dL) 6.2 L Albumin (3.5 - 5.0 g/dL) 3.3 L Globulin (1.9 - 4.2 gm/dL) 2.9 Albumin/Globulin Ratio (1.1 - 2.2 %) 1.1 Hematology CBC w Diff MAN DIFF ORDERED WBC (4.8 - 10.8 /CUMM) 15.2 H RBC (4.20 - 5.40 /CUMM) 4.20 Hgb (12.0 - 16.0 G/DL) 11.6 L Hct (37 - 47 %) 35.7 L MCV (81.0 - 99.0 FL) 85.0 MCH (27.0 - 31.0 PG) 27.6 RDW (11.5 - 14.5 %) 13.8 Plt Count (130 - 400 /CUMM) 272 MPV (7.4 - 10.4 FL) 8.0 Gran % (42.2 - 75.2 %) 88.0 H Lymphocytes % (20.5 - 51.1 %) 6.2 L Monocytes % (1.7 - 9.3 %) 5.3 Eosinophils % (0 - 5 %) 0.3 Basophils % (0.0 - 2.0 %) 0.2 Absolute Granulocytes (1.4 - 6.5 /CUMM) 13.4 H Segmented Neutrophils (42.2 - 75.2 %) 85 H Band Neutrophils (0.0 - 5.0 %) 5 Absolute Lymphocytes (1.2 - 3.4 /CUMM) 0.9 L Lymphocytes (20.5 - 51.1 %) 6 L Monocytes (1.7 - 9.3 %) 3 Absolute Monocytes (0.10 - 0.60 /CUMM) 0.8 H Absolute Eosinophils (0.0 - 0.7 /CUMM) 0 Basophils (0.0 - 2.0 %) 1 Absolute Basophils (0.0 - 0.2 /CUMM) 0 Platelet Estimate (ADEQUATE) VERIFIED BY SMEAR Normocytic RBCs VERIFIED Normochromic RBCs VERIFIED PUBS MCHC (33.0 - 37.0 G/DL) 32.5 L Assessment/Plan Assessment/Plan This 66 year old female with hx htn, dm, hld, admitted with cellulitis left breast s/p left breast reconstruction with tissue expanders (07/06/16) currently npo awaiting cbc result (just drawn @ 8am) continue iv unasyn hep sc - dvt ppx will d/w Core Measures/Miscellaneous Venous Thromboembolism VTE Risk Factors: Age > 40, Surgery VTE Contraindications: No Contraindications VTE Diagnosis: No VTE Type: NONE VTE Confirmed by (Test): NONE Beta Jeanmarie Is Beta Jeanmarie a Home Med? No Antibiotics Is Patient on Antibiotics? Yes If Yes: infection
[2016-07-30 08:31] LABS: ABSOLUTE BASOPHIL COUNT 0 /CUMM (0.0-0.2); ABSOLUTE EOSINOPHIL COUNT 0.1 /CUMM (0.0-0.7); ABSOLUTE GRANULOCYTE CT 10.8 /CUMM (1.4-6.5); ABSOLUTE MONOCYTE COUNT 0.7 /CUMM (0.10-0.60); BASOPHIL % 0.2 % (0.0-2.0); EOSINOPHIL % 0.8 % (0-5); GRANULOCYTE % 85.9 % (42.2-75.2); HEMATOCRIT 32.6 % (37-47); MEAN CORPUSCULAR HGB 27.7 PG (27.0-31.0); MEAN CORPUSCULAR HGB CONC 32.7 G/DL (33.0-37.0); MEAN CORPUSCULAR VOLUME 84.6 FL (81.0-99.0); MEAN PLATELET VOLUME 7.7 FL (7.4-10.4); PLATELET COUNT 242 /CUMM (130-400); RBC DISTRIBUTION WIDTH 13.5 % (11.5-14.5); RED BLOOD CELL CT 3.85 /CUMM (4.20-5.40); WHITE BLOOD CELL COUNT 12.5 /CUMM (4.8-10.8)
--- NOTE | 2016-07-30 13:32 | Cons- Pulmonary ---
General Information and HPI Consulting Request Date of Consult: 07/30/16 Requested By: Dr Ashley History of Present Illness: Patient is status post bilateral mastectomies with immediate bilateral reconstruction with the use of tissue expanders and Flex HD. Earlier this week the drain was removed from the left side. She states she's had some fevers since then noticed new redness encompassing the left breast with reports of some fevers no nausea vomiting. She is brought for evaluation. and now admitted for cellulitis of the breast area ROS fever 102 fatigue Allergies/Medications Allergies: Coded Allergies: NO KNOWN ALLERGIES (12/08/15) Home Med List: Calcium Carbonate/Vitamin D3 (Caltrate 600 + D Tablet) 600 MG-800 TABLET 1 TAB PO DAILY SUPPLEMENT (Reported) Glucosam/Chond/Hyalu/Cf Borate (Move Free Joint Health Tablet) 750 MG-100 MG- 1.65 MG-108 MG TABLET 1 CAP PO DAILY SUPPLEMENT (Reported) Lisinopril 20 MG TABLET 1 TAB PO DAILY htn (Reported) Metformin HCl 500 MG TABLET 1 TAB PO BID dm ii (Reported) Multivit-Min/FA/Lycopen/Lutein (Centrum Silver Tablet) 0.4 MG-300 MCG-250 MCG TABLET 1 TAB PO DAILY VITAMIN SUPPORT (Reported) Pravastatin Sodium 20 MG TABLET 1 TAB PO DAILY cholesterol (Reported) Psyllium Husk (Metamucil) 0.4 GRAM CAPSULE 4 CAP PO DAILY GI (Reported) Sertraline HCl 50 MG TABLET 1 TAB PO DAILY depression (Reported) Turmeric Root Extract (Turmeric) (Unknown Strength) CAPSULE (Unknown Dose) PO DAILY SUPPLEMENT (Reported) Ubidecarenone (Co Q-10) 100 MG CAPSULE 1 CAP PO DAILY SUPPLEMENT (Reported) Review of Systems Review of Systems Constitutional: Reports: see HPI. 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 Surgical History Surgical History: masectomy, COLON RESECTION, L ROTATOR CUFF, L LEFT LUMPECTOMY , APPY Psychosocial History Services at Home: None Smoking Status: Never Smoked ETOH Use: occasional use Illicit Drug Use: denies illicit drug use Exam & Diagnostic Data Last 24 Hrs of Vital Signs/I&O Vital Signs Date Time Temp Pulse Resp B/P B/P Pulse O2 O2 Flow FiO2 Mean Ox Delivery Rate 07/30 0946 80 108/70 07/30 0629 99.2 79 20 110/60 95 Room Air 07/29 2112 98.7 82 20 108/60 95 Room Air 07/29 2038 99.0 84 18 118/59 95 Room Air 07/29 1937 100.0 07/29 1927 100.0 90 18 122/57 94 Room Air 07/29 1751 102.7 07/29 1732 102.7 97 18 120/58 97 Room Air 07/29 1640 97 Room Air 07/29 1517 99.9 97 20 136/61 96 Room Air Intake & Output 07/30 1600 07/30 0800 07/30 0000 Intake Total 600 105 Output Total Balance 600 105 Intake, IV 600 75 Intake, Oral 30 Patient 174 lb Weight Last 48 Hrs of Labs/Clarence: Laboratory Tests 07/30/16 0820: Anion Gap 8, Estimated GFR > 60, BUN/Creatinine Ratio 16.0, CBC w Diff MAN DIFF ORDERED, RBC 3.85 L, MCV 84.6, MCH 27.7, RDW 13.5, MPV 7.7, Gran % 85.9 H, Lymphocytes % 7.8 L, Monocytes % 5.3, Eosinophils % 0.8, Basophils % 0.2, Absolute Granulocytes 10.8 H, Segmented Neutrophils 69, Band Neutrophils 10 H, Absolute Lymphocytes 1.0 L, Lymphocytes 12 L, Monocytes 7, Absolute Monocytes 0.7 H, Eosinophils 2, Absolute Eosinophils 0.1, Absolute Basophils 0, Platelet Estimate ADEQUATE, Normocytic RBCs VERIFIED, Normochromic RBCs VERIFIED, PUBS MCHC 32.7 L 07/29/16 1405: Anion Gap 10, Estimated GFR > 60, BUN/Creatinine Ratio 15.0, Glucose 112 H, Calcium 9.1, Total Bilirubin 0.6, AST 17, ALT 40, Alkaline Phosphatase 102, Total Protein 6.2 L, Albumin 3.3 L, Globulin 2.9, Albumin/Globulin Ratio 1.1, CBC w Diff MAN DIFF ORDERED, RBC 4.20, MCV 85.0, MCH 27.6, RDW 13.8, MPV 8.0, Gran % 88.0 H, Lymphocytes % 6.2 L, Monocytes % 5.3, Eosinophils % 0.3, Basophils % 0.2, Absolute Granulocytes 13.4 H, Segmented Neutrophils 85 H, Band Neutrophils 5, Absolute Lymphocytes 0.9 L, Lymphocytes 6 L, Monocytes 3, Absolute Monocytes 0.8 H, Absolute Eosinophils 0, Basophils 1, Absolute Basophils 0, Platelet Estimate VERIFIED BY SMEAR, Normocytic RBCs VERIFIED, Normochromic RBCs VERIFIED, PUBS MCHC 32.5 L Assessment/Plan Impression/Plan: Physical Exam: General - alert & oriented x 3. comfortable. no acute distress. Lungs - clear. left chest wall erythematous, extending to the previously marked border Cardiac - s1s2. reg. Abdomen - soft. nontender. Extremities - warm bilaterally. no c/c/e. calves soft and nontender. IMPRESSION PT with previous history of diverticulitis with previous hemicolectomy in the past, h/o pe in the past post op, DM, Depression, obesity, WIth Cellulitis of the breast post op s/p left breast reconstruction with tissue expanders 06/30 DM stable HTn Depression history History of diverticulitis Breast ca history H/o htn and hld REC Cont abx Surg to decide on further mgt surg vs conservative rx Cont metformin and other out pt meds including lisinopril, pravastatin and zoloft check sugars Will follow prn call for issues Keep blood sugars less than 150 Consult Acknowledgment - Thank you for your consult request.
[2016-07-30 14:43] VITALS: BP 118/64
--- NOTE | 2016-07-30 23:40 | NUR ---
PT LEFT THE FLOOR FOR OR FOR SURGICAL PROCEDURE TO L BREAST. A/O X3. VSS. FAMILY ACCOMPANIED THE PT TO THE OR.
--- NOTE | 2016-07-31 00:51 | Operative Report ---
Operative/Inv Procedure Report Surgery Date: 07/31/16 Name of Procedure: Removal of bilateral breast tissue expanders, drain abscess left breasts, remove AlloDerm with capsulectomies bilateral breast. Pre-Operative Diagnosis: Infected left breast prosthesis patient desires no reconstruction Post-Operative Diagnosis: Same Estimated Blood Loss: 50ml to 100ml Surgeon/Operations Intelligence: debbie Anesthesia: laryngeal mask airway Operative/Procedure Note Note: The patient continues to have persistent cellulitis of the left breast with a decreasing white count. The patient is not interested in salvaging reconstruction would like both tissue expanders removed. We discussed chronic open wounds bleeding and pain. She accepted the risks of surgery. She was brought to the operating placed supine on the table. Venodyne boots are placed and then the Ventimask anesthesia was given. The chest was prepped and draped in usual sterile fashion. Bilateral tissue expanders with capsulectomies were removed from both breast pockets including AlloDerm. The left breast had a moderate amount of purulent fluid which was cultured. It was irrigated with triple antibiotic with 3 L of pulse lavage. Extensive capsulectomy and curettage was carried out of the pocket after removal of AlloDerm. A drain was placed in both pockets and multilayer closure was carried out.
--- NOTE | 2016-07-31 02:00 | NUR ---
RECEIVED PT BACK FROM RECOVERY ROOM. A/O X3. VSS. ON RA. FAMILY AT BEDSIDE. PAIN 3/10 IN SURGICAL SITE. REFUSED PAIN MED. DRSG TO CHEST CDI W/ZARINA DRAIN X2. FLUIDS INFUSING. IV UNASYN ADMINISTERED. ALPS IN PLACE. WILL MONITOR.
[2016-07-31 02:20] VITALS: BP 118/84
[2016-07-31 04:00] VITALS: BP 114/64
[2016-07-31 06:00] VITALS: BP 128/68
[2016-07-31 08:11] LABS: ABSOLUTE BASOPHIL COUNT 0 /CUMM (0.0-0.2); ABSOLUTE EOSINOPHIL COUNT 0 /CUMM (0.0-0.7); ABSOLUTE GRANULOCYTE CT 12.7 /CUMM (1.4-6.5); ABSOLUTE LYMPH COUNT 0.8 /CUMM (1.2-3.4); ABSOLUTE MONOCYTE COUNT 0.4 /CUMM (0.10-0.60); BASOPHIL % 0.1 % (0.0-2.0); EOSINOPHIL % 0 % (0-5); GRANULOCYTE % 91.7 % (42.2-75.2); HEMATOCRIT 32.6 % (37-47); MEAN CORPUSCULAR HGB 27.8 PG (27.0-31.0); MEAN CORPUSCULAR HGB CONC 32.4 G/DL (33.0-37.0); MEAN CORPUSCULAR VOLUME 85.7 FL (81.0-99.0); MEAN PLATELET VOLUME 7.8 FL (7.4-10.4); PLATELET COUNT 265 /CUMM (130-400); RBC DISTRIBUTION WIDTH 13.7 % (11.5-14.5); RED BLOOD CELL CT 3.81 /CUMM (4.20-5.40); WHITE BLOOD CELL COUNT 13.8 /CUMM (4.8-10.8)
--- NOTE | 2016-07-31 13:22 | PN- Plastic Surgery ---
Subjective Subjective: Patient reports feeling improvement overall, states that she has less malaise and that her surgical pain is responding to percocet thus far. She denies chest pain, shortness of breath and difficulty breathing. She denies nausea and vomitting. Is tolerating po and voiding spontaneously. Has passed flatus, no bm. Objective Vital Signs and I&Os Vital Signs Date Time Temp Pulse Resp B/P B/P Pulse O2 O2 Flow FiO2 Mean Ox Delivery Rate 07/31 0600 97.9 66 18 128/68 97 Room Air 07/31 0400 98.5 88 16 114/64 91 Room Air 07/31 0220 98.5 70 20 118/84 95 Room Air 07/30 1443 98.5 90 20 118/64 93 Intake & Output 07/31 1600 07/31 0800 07/31 0000 07/30 1600 07/30 0800 07/30 0000 Intake Total 600 300 660 600 105 Output Total 60 Balance 540 300 660 600 105 Intake, IV 400 300 600 600 75 Intake, Oral 200 60 30 Number 0 Bowel Movements Output, 60 Drainage Patient 174 lb Weight Physical Exam: General: alert and oriented x3, no acute distress Cardiac: RRR, s1s2 Pulmonary: CTA bialterally Abdomen: Non-tender, non-distended Extremiteis: No peripheral edema, bilateral calves soft and non-tender Surgical site: Chest, dressing intact, left breast with residual erythema that appears to be resolving but no purulence and no extension beyond chest wall. Assessment/Plan Assessment/Plan This is a 66 year old female POD 1 s/p I&D of bilateral chest with removal of tissue expanders. She was admitted to the hospital with cellulitis of left breast following a bilateral mastectomy with tissue pill coater and radiation therapy. She requires iv antibiotics presently, she will likely be converted to oral antibiotics, culture and sensitivity are pending, will obtain ID consult. -Consult with Dr. Dukes requested by Dr. Tang -Continue current abx regimen -Continue current pain regimen -OOB -Dressing change tomorrow -Will D/W Dr. Tang Core Measures/Miscellaneous Venous Thromboembolism VTE Risk Factors: Age > 40, Surgery VTE Contraindications: No Contraindications VTE Diagnosis: No VTE Type: NONE VTE Confirmed by (Test): NONE Beta Jeanmarie Is Beta Jeanmarie a Home Med? No Antibiotics Is Patient on Antibiotics? Yes If Yes: infection
[2016-07-31 14:27] VITALS: BP 118/60
--- NOTE | 2016-07-31 17:07 | PN- Plastic Surgery ---
Surgical Brief Attending Note Brief Attending Note: stable, cellulitis improving. ID to see, ie length of abx. may shower, bacitracin and dsd or band aids at drain sites qd.
[2016-07-31 22:28] VITALS: BP 122/70
[2016-08-01 06:28] VITALS: BP 120/70
--- NOTE | 2016-08-01 10:33 | PN- Plastic Surgery ---
Subjective Subjective: Pt has no major complaints this morning. She admits to some soreness of the L breast today, but reasonably controlled. Otherwise no fevers. She is tolerating po. Objective Vital Signs and I&Os Vital Signs Date Time Temp Pulse Resp B/P B/P Pulse O2 O2 Flow FiO2 Mean Ox Delivery Rate 08/01 0927 68 128/72 08/01 0628 97.6 64 16 120/70 95 07/31 2228 97.6 71 20 122/70 96 Room Air 07/31 1427 97.5 70 19 118/60 95 Room Air Intake & Output 08/01 1600 08/01 0800 08/01 0000 07/31 1600 07/31 0800 07/31 0000 Intake Total 600 1100 600 300 Output Total 25 25 60 Balance 575 -25 1100 540 300 Intake, IV 600 600 400 300 Intake, Oral 500 200 Output, 25 25 60 Drainage Physical Exam: General: Pt is awake and alert. NAD. Cardiac: regular Pulm: cta bilaterally Chest: steris are intact bilaterally. There is minimal redness of the L breast, with significant improvement vs. preop. ZARINA output is serosanginous and minimal. They were slightly clogged, so I milked them with good response. Results Last 48 Hours of Labs: Laboratory Tests 07/31 06 Hematology CBC w Diff NO MAN DIFF REQ WBC (4.8 - 10.8 /CUMM) 13.8 H RBC (4.20 - 5.40 /CUMM) 3.81 L Hgb (12.0 - 16.0 G/DL) 10.6 L Hct (37 - 47 %) 32.6 L MCV (81.0 - 99.0 FL) 85.7 MCH (27.0 - 31.0 PG) 27.8 RDW (11.5 - 14.5 %) 13.7 Plt Count (130 - 400 /CUMM) 265 MPV (7.4 - 10.4 FL) 7.8 Gran % (42.2 - 75.2 %) 91.7 H Lymphocytes % (20.5 - 51.1 %) 5.4 L Monocytes % (1.7 - 9.3 %) 2.8 Eosinophils % (0 - 5 %) 0 Basophils % (0.0 - 2.0 %) 0.1 Absolute Granulocytes (1.4 - 6.5 /CUMM) 12.7 H Absolute Lymphocytes (1.2 - 3.4 /CUMM) 0.8 L Absolute Monocytes (0.10 - 0.60 /CUMM) 0.4 Absolute Eosinophils (0.0 - 0.7 /CUMM) 0 Absolute Basophils (0.0 - 0.2 /CUMM) 0 PUBS MCHC (33.0 - 37.0 G/DL) 32.4 L Microbiology: Intraop cultures reveal Staph Aureus. Final sensitivity pending. Assessment/Plan Assessment/Plan Pt is a 66 yo F w a hx of htn, dm, hld, and breast CA who is s/p B mastectomy with reconstruction 3 weeks ago, complicated by infected implant on the L ( previously radiated) side. She is now POD #2 s/p bilateral removal of expanders. She remains afebrile and cellulitis is improving. Leukocytosis is stable. OR cultures positive for Staph Aureus. -ID consult placed. Dr. Dukes will see pt tomorrow, but he advised changing antibiotics to Oxacillin 2gm q4h. Continue to monitor temps and wbc. Will f/u final sensitivities. -Leave ZARINA drains in place for now. Milk them daily. Monitor output. Bacitracin to insertion sites bid. -Pain control with percocet as needed. -Heparin SC and alps for DVT ppx. OK to ambulate. -Accuchecks with sliding scale coverage. -?primary service surgical vs. medical. Will d/w attending. Core Measures/Miscellaneous Venous Thromboembolism VTE Risk Factors: Age > 40, Surgery VTE Contraindications: No Contraindications VTE Diagnosis: No VTE Type: NONE VTE Confirmed by (Test): NONE Beta Jeanmarie Is Beta Jeanmarie a Home Med? No Antibiotics Is Patient on Antibiotics? Yes If Yes: infection
--- NOTE | 2016-08-01 14:37 | NUR ---
PT STUCK 4 TIMES IN ATTEMPT TO GET CBC, COULD NOT DRAW. SURGICAL [place] [facility]YLES NOTIFIED, SAID OK TO WAIT UNTIL TOMORROW TO DRAW.
[2016-08-01 14:45] VITALS: BP 118/62
[2016-08-01 22:12] VITALS: BP 116/60
[2016-08-02 06:30] VITALS: BP 128/70
--- NOTE | 2016-08-02 07:24 | PN- Plastic Surgery ---
Subjective Subjective: pain is minimal. no fever or flu like illness. co LUE swelling to hand and fingers, had multiple unsuccessful blood draws yesterday. Objective Vital Signs and I&Os Vital Signs Date Time Temp Pulse Resp B/P B/P Pulse O2 O2 Flow FiO2 Mean Ox Delivery Rate 08/02 0630 98.3 81 18 128/70 96 Room Air 08/02 0000 95 Room Air 08/01 2212 98.6 62 20 116/60 95 Room Air 08/01 1445 98.6 64 20 118/62 97 08/01 0927 68 128/72 Intake & Output 08/02 0800 08/02 0000 08/01 1600 08/01 0800 08/01 0000 07/31 1600 Intake Total 250 400 588 185 0479 Output Total 20 20 25 25 25 Balance 230 380 775 575 -25 1100 Intake, IV 600 600 Intake, Oral 250 400 800 500 Number 1 Bowel Movements Output, 20 20 25 25 25 Drainage Physical Exam: General: Pt is awake and alert. NAD. Cardiac: regular Pulm: cta bilaterally Chest: steris are intact bilaterally. R side is c/d/i, no swelling. There is minimal redness of the L breast, mild induration/swelling. ZARINA output is serosanginous and minimal. incision line is c/d/i LUE- trace edema of the wrist and hand/fingers. multiple puncture site from blood draws noted with resolving ecchymotic areas. Results Last 48 Hours of Labs: Laboratory Tests 08/02 08/01 0635 0700 Hematology CBC w Diff Pending Cancelled WBC Pending Cancelled RBC Pending Cancelled Hgb Pending Cancelled Hct Pending Cancelled MCV Pending Cancelled MCH Pending Cancelled RDW Pending Cancelled Plt Count Pending Cancelled MPV Pending Cancelled PUBS MCHC Pending Cancelled Assessment/Plan Assessment/Plan Pt is a 66 yo F w a hx of htn, dm, hld, and breast CA who is s/p B mastectomy with reconstruction 3 weeks ago, complicated by infected implant on the L ( previously radiated) side. She is now POD #3 s/p bilateral removal of expanders. She remains afebrile and cellulitis is improving. OR cultures positive for Staph Aureus- final pending. -continue antibiotics : Oxacillin 2gm q4h. Continue to monitor temps and wbc. Will f/u final sensitivities. -ID consult pending -Leave ZARINA drains in place for now. Milk them daily. Monitor output. Bacitracin to insertion sites bid. -Pain control with percocet as needed. -Heparin SC and alps for DVT ppx. OK to ambulate. -Accuchecks with sliding scale coverage. -follow this am's CBC. -LUE edema- likely from multiple blood draws, no infection now, IV does not appear infiltrated. will hold off on any further blood tests unless absolutely necessary. DW pt to elevate the hand and move fingers as much as possible. Cont to minotor. -possible DC this afternoon or tomorrow. Core Measures/Miscellaneous Venous Thromboembolism VTE Risk Factors: Age > 40, Surgery VTE Contraindications: No Contraindications VTE Diagnosis: No VTE Type: NONE VTE Confirmed by (Test): NONE Beta Jeanmarie Is Beta Jeanmarie a Home Med? No Antibiotics Is Patient on Antibiotics? Yes If Yes: infection
[2016-08-02 08:14] VITALS: BP 128/70
[2016-08-02 08:47] LABS: ABSOLUTE BASOPHIL COUNT 0 /CUMM (0.0-0.2); ABSOLUTE EOSINOPHIL COUNT 0.3 /CUMM (0.0-0.7); ABSOLUTE GRANULOCYTE CT 5.6 /CUMM (1.4-6.5); ABSOLUTE LYMPH COUNT 1.9 /CUMM (1.2-3.4); ABSOLUTE MONOCYTE COUNT 0.7 /CUMM (0.10-0.60); BASOPHIL % 0.5 % (0.0-2.0); EOSINOPHIL % 3.5 % (0-5); GRANULOCYTE % 65.5 % (42.2-75.2); HEMATOCRIT 28.9 % (37-47); MEAN CORPUSCULAR HGB 27.6 PG (27.0-31.0); MEAN CORPUSCULAR HGB CONC 32.2 G/DL (33.0-37.0); MEAN CORPUSCULAR VOLUME 85.6 FL (81.0-99.0); MEAN PLATELET VOLUME 6.6 FL (7.4-10.4); PLATELET COUNT 342 /CUMM (130-400); RBC DISTRIBUTION WIDTH 14.4 % (11.5-14.5); RED BLOOD CELL CT 3.38 /CUMM (4.20-5.40); WHITE BLOOD CELL COUNT 8.6 /CUMM (4.8-10.8)
--- NOTE | 2016-08-02 11:31 | Cons- Infect Disease ---
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 Source of Information: patient, old records History of Present Illness: This is a 66-year-old woman with a history of hypertension, left breast cancer, status post lumpectomy and radiation over 1 1/2 years prior to admission, status post bilateral mastectomies with reconstruction and tissue expanders 3 weeks prior to admission, with Cefazolin prophylaxis, discharged on POD #1 on Keflex for 5 days, with [address], 2 on each side, admitted on July 29 with a three-day history of fevers and with the development of erythema, edema and pain of the left breast beginning after the remaining drain from the left breast was removed. On admission she was febrile to 102.7. Laboratory data revealed a white blood cell count of 15,000, BUN/creatinine 9 and 0.6, with normal liver enzymes. She was begun on Unasyn with a decrease in her temperatures and white blood cell count, but on July 30 the decision was made to remove both tissue expanders, and she was taken to the OR for removal of the expanders and drainage of an abscess from the left breast. She has remained afebrile. Her white blood cell count did increase to 14,000 on July 31 but has normalized today. She feels improved with minimal pain in the left breast and with no other complaints at this time. Allergies/Medications Allergies: Coded Allergies: NO KNOWN ALLERGIES (12/08/15) Home Med List: Calcium Carbonate/Vitamin D3 (Caltrate 600 + D Tablet) 600 MG-800 TABLET 1 TAB PO DAILY SUPPLEMENT (Reported) Glucosam/Chond/Hyalu/Cf Borate (Move Free Joint Health Tablet) 750 MG-100 MG- 1.65 MG-108 MG TABLET 1 CAP PO DAILY SUPPLEMENT (Reported) Lisinopril 20 MG TABLET 1 TAB PO DAILY htn (Reported) Metformin HCl 500 MG TABLET 1 TAB PO BID dm ii (Reported) Multivit-Min/FA/Lycopen/Lutein (Centrum Silver Tablet) 0.4 MG-300 MCG-250 MCG TABLET 1 TAB PO DAILY VITAMIN SUPPORT (Reported) Pravastatin Sodium 20 MG TABLET 1 TAB PO DAILY cholesterol (Reported) Psyllium Husk (Metamucil) 0.4 GRAM CAPSULE 4 CAP PO DAILY GI (Reported) Sertraline HCl 50 MG TABLET 1 TAB PO DAILY depression (Reported) Turmeric Root Extract (Turmeric) (Unknown Strength) CAPSULE (Unknown Dose) PO DAILY SUPPLEMENT (Reported) Ubidecarenone (Co Q-10) 100 MG CAPSULE 1 CAP PO DAILY SUPPLEMENT (Reported) Past History Travel History Traveled to [place] past 21 day No Medical History Blood Transfusion Hx: Yes Neurological: NONE EENT: NONE Cardiovascular: hypertension, hyperlipidemia Respiratory: NONE Gastrointestinal: diverticulitis Hepatic: NONE Renal: NONE Musculoskeletal: osteoarthritis Psychiatric: depression Endocrine: diabetes Blood Disorders: NONE Cancer(s): breast cancer 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 History of MRSA: No History of VRE: No History of CDIFF: No Isolation History: Standard Surgical History Surgical History: lumpectomy (left breast October 2014), masectomy (bilateral 07/06/16), COLON RESECTION, L ROTATOR CUFF, L LEFT LUMPECTOMY, APPY Psychosocial History Services at Home: None Smoking Status: Never Smoked ETOH Use: occasional use Illicit Drug Use: denies illicit drug use Review of Systems Review of Systems All Other Systems: Reviewed and Negative Exam & Diagnostic Data Last 24 Hrs of Vital Signs/I&O Vital Signs Date Time Temp Pulse Resp B/P B/P Pulse O2 O2 Flow FiO2 Mean Ox Delivery Rate 08/02 0814 81 128/70 08/02 0630 98.3 81 18 128/70 96 Room Air 08/02 0000 95 Room Air 08/01 2212 98.6 62 20 116/60 95 Room Air 08/01 1445 98.6 64 20 118/62 97 Intake & Output 08/02 1600 08/02 0800 08/02 0000 Intake Total 250 400 Output Total 200 20 20 Balance -200 230 380 Intake, Oral 250 400 Output, 20 20 Drainage Output, Urine 200 Physical Exam Other Physical Findings: She is awake and alert in no acute distress. She is afebrile. Skin reveals no rash. HEENT exam is negative. Neck is supple with no adenopathy. Breasts status post bilateral mastectomies, with [address]; incisions are clean, with no erythema or tenderness over either breast and with no drainage noted. Lungs are clear. Heart regular rhythm with no murmur. Abdomen is soft, nontender with positive bowel sounds. Back no CVA tenderness. Extremities no cyanosis, clubbing or edema. Neuro is without focality. Last 24 Hours of Lab Results: Laboratory Tests 08/02 0837 Hematology WBC (4.8 - 10.8 /CUMM) 8.6 RBC (4.20 - 5.40 /CUMM) 3.38 L Hgb (12.0 - 16.0 G/DL) 9.3 L Hct (37 - 47 %) 28.9 L MCV (81.0 - 99.0 FL) 85.6 MCH (27.0 - 31.0 PG) 27.6 RDW (11.5 - 14.5 %) 14.4 Plt Count (130 - 400 /CUMM) 342 MPV (7.4 - 10.4 FL) 6.6 L Gran % (42.2 - 75.2 %) 65.5 Lymphocytes % (20.5 - 51.1 %) 22.5 Monocytes % (1.7 - 9.3 %) 8.0 Eosinophils % (0 - 5 %) 3.5 Basophils % (0.0 - 2.0 %) 0.5 Absolute Granulocytes (1.4 - 6.5 /CUMM) 5.6 Absolute Lymphocytes (1.2 - 3.4 /CUMM) 1.9 Absolute Monocytes (0.10 - 0.60 /CUMM) 0.7 H Absolute Eosinophils (0.0 - 0.7 /CUMM) 0.3 Absolute Basophils (0.0 - 0.2 /CUMM) 0 PUBS MCHC (33.0 - 37.0 G/DL) 32.2 L Last 24 Hours of Clarence Results: Blood cultures 2 July 29 negative OR culture July 31 labeled abscess from the left breast positive for Staph aureus sensitive to Oxacillin Assessment/Plan Assessment/Plan Impression: This is a 66-year-old woman status post bilateral mastectomies with reconstruction with tissue expanders 3 weeks prior to admission admitted on July 29 with a 3 day history of fevers and more acute onset of pain, erythema and swelling of the left breast, found on admission to be febrile with a leukocytosis, status post removal of both tissue expanders on the day after admission, with I&D of a abscess from the left chest wall, with the OR culture positive for Staph aureus. She appears to have improved with defervescence and normalization of her white blood cell count, and, at this point, she can be switched to oral antibiotics to complete a 7-10 day course of antibiotics for a soft tissue infection. Suggestion: 1. Discontinue Oxacillin 2. Begin Keflex 500 mg po every 6 hours for 1 week Consult Acknowledgment - Thank you for your consult request.
[2016-08-02] MEDS ORDERED: PERCOCET 5-3251 EACH PO (12:55)
[2016-08-02] MEDS ORDERED: KEFLEX500 M1 PO (12:55)
--- NOTE | 2016-08-02 13:04 | Patient Discharge Instructions ---
Discharge Instructions General Discharge Information You were seen/treated for: Left breast cellulitis/infected implant You had these procedures: Removal of bilateral breast implants, washout, placement of drains Watch for these problems: Significantly increased pain, temperature over 101, or increased redness/ swelling No bath, but you may shower: Yes Other wound care: Daily dry dressing around ZARINA drains Special Instructions: Empty drains daily and record outputs call your DrFerny for any significant change in color or volume of output Diet Continue normal diet: Yes Activity Activity Self Limited: Yes Other activity limits: No operating heavy machinery until okay with your DrFerny and off all pain medications Reefer to your preoperative instructions with regards to exercise and range of motion Acute Coronary Syndrome Inclusion Criteria At DC or during hospital stay patient has or had the following: ACS DIAGNOSIS No Discharge Core Measures Meds if any: Prescribed or Continued at Discharge Meds if any: NOT Prescribed or Continued at Discharge Congestive Heart Failure Inclusion Criteria At DC or during hospital stay patient has or had the following: CHF DIAGNOSIS No Discharge Core Measures Meds if any: Prescribed or Continued at Discharge Meds if any: NOT Prescribed or Continued at Discharge Cerebrovascular accident Inclusion Criteria At DC or during hospital stay patient has or had the following: CVA/TIA Diagnosis No Discharge Core Measures Meds if any: Prescribed or Continued at Discharge Meds if any: NOT Prescribed or Continued at Discharge Venous thromboembolism Inclusion Criteria VTE Diagnosis No VTE Type NONE VTE Confirmed by (Test) NONE Discharge Core Measures - Per Current guidelines, there needs to be overlap - treatment for the first 5 days of Warfarin therapy. - If discharged on Warfarin prior to 5 days of - overlap therapy, the patient will need to be - assessed for post discharge needs including - *Post discharge parental anticoagulation - *Warfarin and/or parental anticoagulation education - *Follow up date to check INR post discharge At least 5 days overlap therapy as Inpatient No Meds if any: Prescribed or Continued at Discharge Note: Overlap Therapy is Warfarin and Anticoagulant Meds if any: NOT Prescribed or Continued at Discharge
--- NOTE | 2016-08-02 19:40 | PN- Att Addend ---
Attending Addendum Attending Brief Note Skin examined Afebrile Doing well Slight swelling of the left upper extremity Labs and data reviewed Chest decreased breath sounds Redness in the left chest wall seems to be a significantly reduced Laboratory Tests 08/02 08/01 0837 [id number] Hematology CBC w Diff Cancelled WBC (4.8 - 10.8 /CUMM) 8.6 Cancelled RBC (4.20 - 5.40 /CUMM) 3.38 L Cancelled Hgb (12.0 - 16.0 G/DL) 9.3 L Cancelled Hct (37 - 47 %) 28.9 L Cancelled MCV (81.0 - 99.0 FL) 85.6 Cancelled MCH (27.0 - 31.0 PG) 27.6 Cancelled RDW (11.5 - 14.5 %) 14.4 Cancelled Plt Count (130 - 400 /CUMM) 342 Cancelled MPV (7.4 - 10.4 FL) 6.6 L Cancelled Gran % (42.2 - 75.2 %) 65.5 Lymphocytes % (20.5 - 51.1 %) 22.5 Monocytes % (1.7 - 9.3 %) 8.0 Eosinophils % (0 - 5 %) 3.5 Basophils % (0.0 - 2.0 %) 0.5 Absolute Granulocytes (1.4 - 6.5 /CUMM) 5.6 Absolute Lymphocytes (1.2 - 3.4 /CUMM) 1.9 Absolute Monocytes (0.10 - 0.60 /CUMM) 0.7 H Absolute Eosinophils (0.0 - 0.7 /CUMM) 0.3 Absolute Basophils (0.0 - 0.2 /CUMM) 0 PUBS MCHC (33.0 - 37.0 G/DL) 32.2 L Cancelled Microbiology Date/Time Procedure - Status Source Growth 08/01 19 Culture & Sensitivity - COMP TRUNK/O.R. STAPH AUREUS 08/01 19 Gram Stain - COMP TRUNK/O.R. Vital Signs Date Time Temp Pulse Resp B/P B/P Pulse O2 O2 Flow FiO2 Mean Ox Delivery Rate 08/02 0814 81 128/70 08/02 0630 98.3 81 18 128/70 96 Room Air 08/02 0000 95 Room Air 08/01 2212 98.6 62 20 116/60 95 Room Air IMPRESSION PT with previous history of diverticulitis with previous hemicolectomy in the past, h/o pe in the past post op, DM, Depression, obesity, WIth Cellulitis of the breast post op s/p left breast reconstruction with tissue expanders 06/30, now status post explantation of these expanders with soft tissue infection with staph and the culture DM stable HTn Depression history History of diverticulitis Breast ca history H/o htn and hld REC Antibiotics per ID Continue outpatient medications Follow sugars as outpatient Continue metformin Continue antihypertensives follow-up in the next few weeks
== END 2016-08-02 14:14 | DRG 858 ==
LOC: ERH 11:52 → 2NA 17:59 → ERHI 17:59 → ENRESERV 19:11 → ENTRNSPT 20:35 → 2NA 20:49 → CMPTRNSPT 21:12 → ENPENDDIS 08-02 13:12 → 2NA 08-02 14:14
PROVIDERS: Emergency Medicine; Physician Assistant Surgical; ADMIT Internal Medicine Pulmonary Disease
PROC: 0HPU0NZ Removal of Tissue Expander from Left Breast, Open Approach (ICD-10-PCS; principal; 2016-07-31)
PROC: 0HPT0NZ Removal of Tissue Expander from Right Breast, Open Approach (ICD-10-PCS; 2016-07-31)
PROC: 0HPU0JZ Removal of Synthetic Substitute from Left Breast, Open Approach (ICD-10-PCS; 2016-07-31)
PROC: 0HPT0JZ Removal of Synthetic Substitute from Right Breast, Open Approach (ICD-10-PCS; 2016-07-31)
PROC: 0WP Anatomical Regions, General, Removal (ICD-10-PCS; 2016-07-31)
PROC: 0H9U00Z Drainage of Left Breast with Drainage Device, Open Approach (ICD-10-PCS; 2016-07-31)
DX: T81.4XXA Infection following a procedure, initial encounter (principal); I10 Essential (primary) hypertension; F32.9 Major depressive disorder, single episode, unspecified; E11.9 Type 2 diabetes mellitus without complications; B95.61 Methicillin susceptible Staphylococcus aureus infection as the cause of diseases classified elsewhere; E78.5 Hyperlipidemia, unspecified; M19.90 Unspecified osteoarthritis, unspecified site; Z85.3 Personal history of malignant neoplasm of breast; E66.9 Obesity, unspecified; Z86.711 Personal history of pulmonary embolism; Z79.84 Long term (current) use of oral hypoglycemic drugs; Z92.3 Personal history of irradiation; N61.1 Abscess of the breast and nipple
CPT/HCPCS: 2NAP; 87070; 87075; 87184; 36415; 82436; 87040; 87147; J0131; J1100; J1644; J1815; J2405; J7042